=== PATIENT | female | born 1945 | race Caucasian/White ===

== ENCOUNTER → 2017-12-07 | Outpatient (CLI) | payer MEDICARE, OTHER ==
[~2017-12-07] MED LIST: ASPI81TA94 PO; DILT180C73 PO; ESTR-33 PO; GLIP1TAB PO; GLYB1TAB47 PO; LEVO25TA61 PO; LEVO50TA86 PO; LIRA0.6P3 SQ; LOSA-54 PO; MULT-885 PO; OMEG-11 PO; OXYB5TAB86 PO; SERT-181 PO; SERT-184 PO; SIMV10TA98 PO; SOLI10TA8 PO; SOLI5TAB PO; TRI40I IM; [UNRECOGNIZED DRUG - CODE] PO
[2017-12-07 13:48] LABS: PLATELET COUNT, AUTOMATED 344 K/uL (150-450)
--- NOTE | 2017-12-07 13:54 | EKG ---
FACILITY: [facility] - [place] PATIENT NAME: SACHIN MYERS : [id number] MR: [id number] V: [id number] EXAM DATE: ORDERING PHYSICIAN: REBECCA JAMES TECHNOLOGIST: GÓMEZ Cruz Reason : AFIB Blood Pressure : / mmHG Vent. Rate : 095 BPM Atrial Rate : 156 BPM P-R Int : 000 ms QRS Dur : 086 ms QT Int : 318 ms P-R-T Axes : 000 097 262 degrees QTc Int : 399 ms Atrial fibrillation with controlled ventricular response Borderline right axis Nonspecific ST-T findings diffusely Abnormal ECG Confirmed by DIMA LEON ([id number]) on 12/07/2017 4:25:58 PM Referred By: JACOB Confirmed By:DIMA LEON
--- NOTE | 2017-12-07 15:46 | RADIOLOGY IMAGING REPORT ---
FACILITY: [facility] - [place] PATIENT NAME: Sabrina Elam : 1945 MR: [id number] V: [id number] EXAM DATE: ORDERING PHYSICIAN: REBECCA JAMES TECHNOLOGIST: Location: [facility] - [place] Patient: Sabrina Elam : 1945 Visit/Account:[id number] Date of Sevice: 12/07/2017 Exam type: CHEST PA AND LAT History: Chest pain, shortness of breath and fatigue Comparison: October 19, 2016. Findings: The lungs are free of acute effusions, infiltrates or edema. The cardiac silhouette is normal in siz e. This mild ectasia the thoracic aorta and moderate spondylotic changes of the thoracic spine IMPRESSION: 1. No acute cardiac pulmonary process is seen Report Dictated By: Danya Mcfarland MD at 12/07/2017 3:41 PM Report E-Signed By: Danya Mcfarland MD at 12/07/2017 3:43 PM WSN:[email or web address]
== END ==
LOC: LAB 13:31
PROVIDERS: ATTEND Nurse Practitioner Family
DX: I48.91 Unspecified atrial fibrillation (principal); R94.31 Abnormal electrocardiogram [ECG] [EKG]; M47.894 Other spondylosis, thoracic region; I77.810 Thoracic aortic ectasia; E11.9 Type 2 diabetes mellitus without complications; R59.1 Generalized enlarged lymph nodes; R53.83 Other fatigue; R06.02 Shortness of breath; Z86.2 Personal history of diseases of the blood and blood-forming organs and certain disorders involving the immune mechanism
CPT/HCPCS: 36415; 71046; 82040; 82247; 82310; 82374; 82435; 82565; 82947; 83036; 84075; 84132; 84155; 84295; 84450; 84460; 84520; 85025; 93005

== ENCOUNTER 2018-02-17 12:56 | Emergency (ER) | payer MEDICARE, OTHER ==
[2018-02-17] MEDS ORDERED: ASPIRIN 81 MG CHEW PO ONE (13:05)
--- NOTE | 2018-02-17 13:05 | ER Report ---
History and Physical Time Seen By : 13:04 HPI/ROS CHIEF COMPLAINT: Low heart rate HISTORY OF PRESENT ILLNESS: Patient is a 72-year-old female who presents emergency Department with generalized weakness and bradycardia. She recently had a cardioversion at [facility] for atrial fibrillation. She was discharged on metoprolol 12.5 mg twice a day as well as flecainide which was decreased from 100 mg twice a day to 50 mg twice a day. Since discharge patient has had bradycardia with heart rates in the low to mid 40. She denies any chest pain or shortness of breath with this however she feels generally weak. Patient has been taking all medications as prescribed and is anticoagulated on Alquist. REVIEW OF SYSTEMS: Constitutional: No fever, no chills. Generalized malaise Eyes: No discharge. ENT: No sore throat. Cardiovascular: Slow heart rate Respiratory: No cough, no shortness of breath. Gastrointestinal: No abdominal pain, no vomiting. Genitourinary: No hematuria. Musculoskeletal: No back pain. Skin: No rashes. Neurological: No headache. Allergies: Coded Allergies: No Known Drug Allergies (Unverified , 02/17/18) Home Meds Active Scripts Glipizide/Metformin Hcl (GLIPIZIDE-METFORMIN 5-500 MG) 1 Each Tablet, 2 EACH PO BID, #360 TAB 2 Refills Prov:WIN HADDAD MD 11/07/14 Simvastatin (SIMVASTATIN) 10 Mg Tablet, 1 TAB PO HS, #90 TAB 3 Refills Prov:WIN HADDAD MD 09/04/14 Diltiazem Hcl (DILTIAZEM 24HR ER) 180 Mg Cap.er.24h, 180 MG PO DAILY, #90 CAP 3 Refills Prov:WIN HADDAD MD 09/04/14 Losartan/Hydrochlorothiazide (LOSARTAN-HCTZ 100-25 MG TAB) 1 Each Tablet, 1 TAB PO DAILY, #90 TAB 3 Refills Prov:WIN HADDAD MD 09/04/14 Levothyroxine Sodium (LEVOTHYROXINE SODIUM) 50 Mcg Tablet, 1 TAB PO QDAY, #90 TAB 3 Refills Prov:WIN HADDAD MD 07/04/14 Reported Medications Liraglutide (VICTOZA 2-ZEINA) 0.6 Mg/0.1 Ml Pen.injctr, 0.6 MG SQ QDAY 06/30/16 Oxybutynin Chloride (OXYBUTYNIN CHLORIDE) 5 Mg Tablet, 10 MG PO QDAY, TAB 06/30/16 Aspirin (ASPIRIN) 81 Mg Tab.chew, 81 MG PO QDAY, TAB.CHEW TAKE 1 TABLET BY MOUTH EVERY DAY 06/28/14 Multivitamin (DAILY VITAMIN) 1 Each Tablet, 1 EACH PO DAILY 06/28/14 Glucosamine Sulfate 2KCL (GLUCOSAMINE SULFATE) 1,000 Mg Capsule, 1000 MG PO DAILY, CAPSULE 06/28/14 Rhododendron-3 Fatty Acids/Fish Oil (FISH OIL 1,000 MG CAPSULE) 1 Each Capsule, 1 EACH PO BID, CAPSULE 06/28/14 Past Medical/Surgical History Hypothyroidism, atrial fibrillation status post cardioversion Hx Smoking: No Smoking Status: Never Smoker Hx Substance Use Disorder: No Hx Alcohol Use: Yes (MINIMAL) Constitutional Vital Sign - Last 24 Hours 02/17/18 02/17/18 02/17/18 02/17/18 12:58 13:02 13:11 13:26 Temp 98.2 Pulse 43 44 43 Resp 16 17 13 B/P (MAP) 187/87 187/87 (120) Pulse Ox 93 92 90 O2 Delivery Room Air 02/17/18 02/17/18 02/17/18 02/17/18 13:30 13:41 13:56 14:11 Pulse 47 44 Resp 10 17 16 B/P (MAP) 140/101 (114) Pulse Ox 90 90 Physical Exam General Appearance: The patient is alert, has no immediate need for airway protection and no signs of toxicity. Eyes: Pupils equal and round no pallor or injection. ENT, Mouth: Mucous membranes are moist. Respiratory: There are no retractions, lungs are clear to auscultation. Cardiovascular: Bradycardic rate that is occasionally irregular[ ] Gastrointestinal: Abdomen is soft and non tender, no masses, bowel sounds normal. Neurological: Awake and alert and nontoxic Skin: Warm and dry, no rashes. Musculoskeletal: Neck is supple non tender. Extremities are nontender, nonswollen and have full range of motion. Medical Decision Making Data Points Result Diagram: 02/17/18 1315 02/17/18 1315 Laboratory Hematology Test 02/17/18 13:15 Red Blood Count 4.18 M/uL (4.17-5.56) Mean Corpuscular Volume 84.5 fL (80.0-96.0) Mean Corpuscular Hemoglobin 29.1 pg (26.0-33.0) Mean Corpuscular Hemoglobin Concent 34.4 g/dL (32.0-36.0) Red Cell Distribution Width 15.4 % (11.5-14.5) Mean Platelet Volume 8.0 fL (7.2-11.1) Neutrophils (%) (Auto) 63.3 % (39.4-72.5) Lymphocytes (%) (Auto) 26.5 % (17.6-49.6) Monocytes (%) (Auto) 6.4 % (4.1-12.4) Eosinophils (%) (Auto) 3.2 % (0.4-6.7) Basophils (%) (Auto) 0.6 % (0.3-1.4) Nucleated RBC Relative Count (auto) 0.0 /100WBC Neutrophils # (Auto) 5.2 K/uL (2.0-7.4) Lymphocytes # (Auto) 2.2 K/uL (1.3-3.6) Monocytes # (Auto) 0.5 K/uL (0.3-1.0) Eosinophils # (Auto) 0.3 K/uL (0.0-0.5) Basophils # (Auto) 0.0 K/uL (0.0-0.1) Nucleated RBC Absolute Count (auto) 0.00 K/uL Prothrombin Time 15.3 seconds (12.0-14.4) Prothromb Time International Ratio 1.20 Activated Partial Thromboplast Time 33 seconds (23-35) Sodium Level 136 mmol/L (137-145) Potassium Level 4.3 mmol/L (3.5-5.0) Chloride Level 97 mmol/L (98-107) Carbon Dioxide Level 23 mmol/L (22-31) Blood Urea Nitrogen 32 mg/dl (7-18) Creatinine 1.30 mg/dl (0.52-1.04) Glomerular Filtration Rate Calc 40.4 Random Glucose 127 mg/dl (75-110) Calcium Level 9.3 mg/dl (8.4-10.2) Total Bilirubin 0.6 mg/dl (0.2-1.3) Aspartate Amino Transf (AST/SGOT) 178 U/L (0-35) Alanine Aminotransferase (ALT/SGPT) 160 U/L (0-56) Alkaline Phosphatase 110 U/L (0-126) Troponin I < 0.012 ng/ml B-Type Natriuretic Peptide 355 pg/ml (0-100) Total Protein 7.4 g/dl (6.3-8.2) Albumin 4.3 g/dl (3.5-5.0) Chemistry Test 02/17/18 13:15 White Blood Count 8.2 k/uL (4.5-11.0) Red Blood Count 4.18 M/uL (4.17-5.56) Hemoglobin 12.2 g/dL (12.0-16.0) Hematocrit 35.3 % (34.0-47.0) Mean Corpuscular Volume 84.5 fL (80.0-96.0) Mean Corpuscular Hemoglobin 29.1 pg (26.0-33.0) Mean Corpuscular Hemoglobin Concent 34.4 g/dL (32.0-36.0) Red Cell Distribution Width 15.4 % (11.5-14.5) Platelet Count 306 K/uL (150-450) Mean Platelet Volume 8.0 fL (7.2-11.1) Neutrophils (%) (Auto) 63.3 % (39.4-72.5) Lymphocytes (%) (Auto) 26.5 % (17.6-49.6) Monocytes (%) (Auto) 6.4 % (4.1-12.4) Eosinophils (%) (Auto) 3.2 % (0.4-6.7) Basophils (%) (Auto) 0.6 % (0.3-1.4) Nucleated RBC Relative Count (auto) 0.0 /100WBC Neutrophils # (Auto) 5.2 K/uL (2.0-7.4) Lymphocytes # (Auto) 2.2 K/uL (1.3-3.6) Monocytes # (Auto) 0.5 K/uL (0.3-1.0) Eosinophils # (Auto) 0.3 K/uL (0.0-0.5) Basophils # (Auto) 0.0 K/uL (0.0-0.1) Nucleated RBC Absolute Count (auto) 0.00 K/uL Prothrombin Time 15.3 seconds (12.0-14.4) Prothromb Time International Ratio 1.20 Activated Partial Thromboplast Time 33 seconds (23-35) Glomerular Filtration Rate Calc 40.4 Calcium Level 9.3 mg/dl (8.4-10.2) Total Bilirubin 0.6 mg/dl (0.2-1.3) Aspartate Amino Transf (AST/SGOT) 178 U/L (0-35) Alanine Aminotransferase (ALT/SGPT) 160 U/L (0-56) Alkaline Phosphatase 110 U/L (0-126) Troponin I < 0.012 ng/ml B-Type Natriuretic Peptide 355 pg/ml (0-100) Total Protein 7.4 g/dl (6.3-8.2) Albumin 4.3 g/dl (3.5-5.0) Coagulation Test 02/17/18 13:15 Prothrombin Time 15.3 seconds Prothromb Time International Ratio 1.20 Activated Partial Thromboplast Time 33 seconds EKG/Imaging EKG Interpretation EKG shows sinus bradycardia with occasional PACs Monitor Interpretation: Sinus Bradycardia Imaging FACILITY: [facility] PATIENT NAME: Sabrina Elam : 1945 MR: [id number] V: [id number] EXAM DATE: [id number] ORDERING PHYSICIAN: MIS FLOWER TECHNOLOGIST: Location: [facility] Patient: Sabrina Elam : 1945 Visit/Account:[id number] Date of Sevice: 02/17/2018 2 VIEWS CHEST INDICATION: Chest pain. COMPARISON: 12/07/2017. FINDINGS: Cardiomediastinal silhouette and pulmonary vessels within normal limits. There is no focal infiltrate or lobar consolidation. There is no pneumothorax or pleural effusion. No nodule. Chronic interstitial changes. Upper abdomen is unremarkable. No acute bony abnormality. IMPRESSION: 1. No acute cardiopulmonary process. Report Dictated By: Simeon Agrawal at 02/17/2018 1:55 PM Report E-Signed By: Simeon Agrawal at 02/17/2018 1:56 PM WSN:[id number] ED Course/Re-evaluation Clinical Indication for ER IV: Hydration, IV Access ED Course 02/17/2018 1:56:41 pm plan at this time will be cardiac workup once this is resulted I will give a call to her corporate representative at [facility]. Re-evaluation 02/17/2018 2:29:[address] Mcintosh from cardiology at [facility]. History physical exam patient course reviewed. His recommendation is to stop both metoprolol and flecainide he will call the patient in the next 24 hours to discuss other option potentially a pacemaker. Patient feels comfortable with this plan she was counseled to return if she develops chest pain or shortness of breath at any time or if she feels worse. No questions or concerns at time of disposition Decision to Disposition Date: Feb 17, 2018 Decision to Disposition Time: 14:30 Depart Departure Latest Vital Signs Vital Signs Date Time Temp Pulse Resp B/P (MAP) Pulse Ox O2 Delivery O2 Flow Rate FiO2 02/17/18 14:11 44 16 90 02/17/18 13:30 140/101 (114) 02/17/18 12:58 98.2 Room Air Impression: Primary Impression: Bradycardia Condition: Improved Disposition: HOME OR SELF-CARE Referrals: REBECCA JAMES (PCP) 2 Days If symptoms worsen Patient Instructions: Bradycardia (ED) Additional Instructions: Discontinue use of the metoprolol and discontinue use of flecainide. You should hear from cardiology in the next 24 hours to discuss other options for treatment of your atrial fibrillation. If at any point he develop chest pain or shortness of breath or you feel worse he should return to the emergency department MIS FLOWER MD Feb 17, 2018 13:05
--- NOTE | 2018-02-17 13:14 | EKG ---
FACILITY: [facility] - [place], [place] PATIENT NAME: SACHIN MYERS : [id number] MR: [id number] V: [id number] EXAM DATE: ORDERING PHYSICIAN: MIS FLOWER TECHNOLOGIST: NGHIA Cruz Reason : BRADYCARDIA Blood Pressure : / mmHG Vent. Rate : 042 BPM Atrial Rate : 042 BPM P-R Int : 174 ms QRS Dur : 094 ms QT Int : 470 ms P-R-T Axes : 074 094 124 degrees QTc Int : 392 ms Marked sinus bradycardia with premature supraventricular complexes Rightward axis Nonspecific T wave abnormality Abnormal ECG When compared with ECG of 07-DEC-2017 13:46, Atrial fibrillation has been replaced by sinus bradycardia Non-specific change in ST segment in Inferior leads T wave inversion no longer evident in Inferior leads Nonspecific T wave abnormality, worse in Anterior leads Confirmed by CICI ESTRELLA ([id number]) on 02/17/2018 8:34:58 PM Referred By: MUNDO Confirmed By:CICI ESTRELLA
[2018-02-17] MEDS ORDERED: NS(*) 0.9% 500 ML BAG 500 ML IV ONE (13:40)
[2018-02-17 13:45] LABS: PLATELET COUNT, AUTOMATED 306 K/uL (150-450)
[2018-02-17 13:51] LABS: INR 1.2
--- NOTE | 2018-02-17 14:00 | RADIOLOGY IMAGING REPORT ---
[place] [facility] [place] NAME: Sabrina Elam : 1945 MR: [id number] V: [id number] EXAM DATE: ORDERING PHYSICIAN: MIS FLOWER TECHNOLOGIST: Location: [facility] - [place] Patient: Sabrina Elam : 1945 Visit/Account:[id number] Date of Sevice: 02/17/2018 2 VIEWS CHEST INDICATION: Chest pain. COMPARISON: 12/07/2017. FINDINGS: Cardiomediastinal silhouette and pulmonary vessels within normal limits. There is no focal infiltrate or lobar consolidation. There is no pneumothorax or pleural effusion. No nodule. Chronic interstitial changes. Upper abdomen is unremarkable. No acute bony abnormality. IMPRESSION: 1. No acute cardiopulmonary process. Report Dictated By: Simeon Agrawal at 02/17/2018 1:55 PM Report E-Signed By: Simeon Agrawal at 02/17/2018 1:56 PM WSN:[id number]
[2018-02-17 14:30] VITALS: BP 149/78
[2018-02-17] MEDS ORDERED: METO25TA23 PO (14:31)
[2018-02-17] MEDS ORDERED: FLEC50TA16 PO (14:31)
[2018-02-17] MEDS ORDERED: APIX5TAB PO (14:31)
== END 2018-02-17 14:35 | disposition home or self-care (01) ==
LOC: ER 13:05
DX: R00.1 Bradycardia, unspecified (principal)
CPT/HCPCS: 71046; 83880; 84484; 85025; 85610; 85730; 93005; 96360; 99284; A9270; J7040; 82040; 82247; 82310; 82374; 82435; 82565; 82947; 84075; 84132; 84155; 84295; 84450; 84460; 84520

== ENCOUNTER → 2018-03-01 | Outpatient (CLI) | payer MEDICARE, OTHER ==
[~2018-03-01] MED LIST changes: +APIX5TAB PO; +FLEC50TA16 PO; +METO25TA23 PO
== END ==
LOC: LAB 09:14
PROVIDERS: ATTEND Internal Medicine
DX: I48.0 Paroxysmal atrial fibrillation (principal)
CPT/HCPCS: 36415; 82310; 82374; 82435; 82565; 82947; 84132; 84295; 84520; 85027

== ENCOUNTER → 2018-06-20 | Outpatient (CLI) | payer MEDICARE, OTHER ==
--- NOTE | 2018-06-20 12:13 | RADIOLOGY IMAGING REPORT ---
FACILITY: [facility] PATIENT NAME: SACHIN MYERS : [id number] MR: [id number] V: [id number] EXAM DATE: ORDERING PHYSICIAN: REBECCA JAMES TECHNOLOGIST: Helen Leal PROCEDURE:BILATERAL DIGITAL SCREENING MAMMOGRAM WITH CAD ASSISTED INTERPRETATION & 3D TOMOSYNTHESIS COMPARISON:Prior mammograms 06/16/17, 06/09/16, 05/27/15, 05/28/14, 05/19/14, 05/15/13. INDICATIONS:screening FINDINGS: A small to moderate amount of fibroglandular tissue is seen throughout the breasts. The parenchymal pattern has remained stable allowing for difference in mammographic technique & patient positioning. There is no evidence of malignant appearing mass, malignant appearing calcifications or other secondary sign of malignancy in either breast. DIAGNOSTIC CATEGORY 1--NEGATIVE. RECOMMENDATIONS: ROUTINE MAMMOGRAM AND CLINICAL EVALUATION. IMPRESSION: BIRADS 1: Negative. No significant abnormality is seen. Dictated by: Danya Mcfarland M.D. on 06/20/2018 at 11:35 Transcribed by: HARMAN on 06/20/2018 at 11:44 Approved by: Danya Mcfarland M.D. on 06/20/2018 at 12:12 [facility]
== END ==
LOC: MAMO 01:01
PROVIDERS: ATTEND Nurse Practitioner Family
DX: Z12.31 Encounter for screening mammogram for malignant neoplasm of breast (principal)
CPT/HCPCS: 77063; 77067

== ENCOUNTER → 2019-02-12 | Outpatient (CLI) | payer MEDICARE, OTHER ==
[2019-02-12 10:47] LABS: PLATELET COUNT, AUTOMATED 293 K/uL (150-450)
--- NOTE | 2019-02-12 11:39 | RADIOLOGY IMAGING REPORT ---
FACILITY: [facility] PATIENT NAME: Sabrina Elam : 1945 MR: [id number] V: [id number] EXAM DATE: ORDERING PHYSICIAN: REBECCA JAMES TECHNOLOGIST: Location: [facility] - [place] Patient: Sabrina Elam : 1945 Visit/Account:[id number] Date of Sevice: 02/12/2019 Exam type: CHEST PA LAT History: Hypothyroidism Comparison: February 17, 2018. Findings: There is mild chronic peribronchial thickening bilaterally. No evidence of acute-appearing pulmonary consolidation. Cardiac silhouette is normal in size. There is a dual lead cardiac pacemaker. Ther e are spondylotic changes of the thoracic spine and surgical clips the right upper quadrant of abdome n IMPRESSION: 1. Chronic peribronchial thickening although no evidence of acute pulmonary consolidation Report Dictated By: Danya Mcfarland MD at 02/12/2019 11:31 AM Report E-Signed By: Danya Mcfarland MD at 02/12/2019 11:33 AM WSN:[email or web address]
--- NOTE | 2019-02-12 11:42 | EKG ---
[place] [facility] [place] SACHIN MYERS : [id number] MR: [id number] V: [id number] EXAM DATE: ORDERING PHYSICIAN: REBECCA JAMES TECHNOLOGIST: Test Reason : A-fib Blood Pressure : / mmHG Vent. Rate : 070 BPM Atrial Rate : 070 BPM P-R Int : 208 ms QRS Dur : 106 ms QT Int : 406 ms P-R-T Axes : 027 087 118 degrees QTc Int : 438 ms Electronic atrial pacemaker Nonspecific T wave abnormality Abnormal ECG When compared with ECG of 17-FEB-2018 13:10, Electronic atrial pacemaker has replaced Sinus rhythm Vent. rate has increased BY 28 BPM QT has lengthened Confirmed by CICI ESTRELLA ([id number]) on 02/12/2019 6:07:08 PM Referred By: Confirmed By:CICI ESTRELLA
== END ==
LOC: LAB 10:09
PROVIDERS: ATTEND Nurse Practitioner Family
DX: R60.9 Edema, unspecified (principal); R06.02 Shortness of breath; E03.9 Hypothyroidism, unspecified; E11.9 Type 2 diabetes mellitus without complications; I48.91 Unspecified atrial fibrillation; Z95.0 Presence of cardiac pacemaker; R94.31 Abnormal electrocardiogram [ECG] [EKG]
CPT/HCPCS: 36415; 71046; 82040; 82247; 82310; 82374; 82435; 82565; 82947; 83880; 84075; 84132; 84155; 84295; 84443; 84450; 84460; 84520; 85025; 93005

== ENCOUNTER → 2019-03-15 | Outpatient (CLI) | payer MEDICARE, OTHER ==
--- NOTE | 2019-03-15 17:25 | RADIOLOGY IMAGING REPORT ---
FACILITY: [facility] [place] PATIENT NAME: Sabrina Elam : 1945 MR: [id number] V: [id number] EXAM DATE: ORDERING PHYSICIAN: HELENE MCCABE TECHNOLOGIST: [place] [facility] [place] El[place] : 1945 Visit/Account:[id number] Date of Sevice: 03/15/2019 EXAMINATION: Renal ultrasound 03/15/2019 3:30 PM HISTORY: CKD stage III. Hypertension.. COMPARISON STUDIES: none FINDINGS: Kidneys: Right kidney- 10.0 x 4.5 x 5.5 cm, normal parenchymal thickness and echogenicity for age. Left kidney- 10.5 x 4.6 x 4.4 cm, normal parenchymal thickness and echogenicity for age. Uniform and symmetric blood flow in each kidney by Doppler ultrasound. Resistive indices are not elev ated. Hydronephrosis: none Bladder: Normal contours filled. Both ureteral jets were visualized. 84 cc in the bladder post void. Abdominal aorta and IVC: Patent by Doppler ultrasound IMPRESSION: 1. Unremarkable ultrasound appearance of the kidneys for age. 2. 84 cc post void residual in the bladder. Report Dictated By: Christian Blackburn MD at 03/15/2019 5:15 PM Report E-Signed By: Christian Blackburn MD at 03/15/2019 5:17 PM WSN:[id number]
== END ==
LOC: US 01:23
PROVIDERS: ATTEND Internal Medicine Nephrology
DX: Z13.9 Encounter for screening, unspecified (principal); N18.3 Chronic kidney disease, stage 3 (moderate); I10 Essential (primary) hypertension
CPT/HCPCS: 36415; 76705; 82040; 82306; 82310; 82374; 82435; 82565; 82947; 83970; 84100; 84132; 84295; 84520; 84550

== ENCOUNTER → 2019-03-29 | Outpatient (CLI) | payer MEDICARE, OTHER | LOC: US 00:41 | PROVIDERS: ATTEND Internal Medicine | DX: I48.0 Paroxysmal atrial fibrillation (principal); I10 Essential (primary) hypertension; E78.00 Pure hypercholesterolemia, unspecified; R00.1 Bradycardia, unspecified | CPT/HCPCS: 93306 ==